=== PATIENT | male | born 1975 | race American Indian/Alaskan Native ===

== ENCOUNTER 2020-02-25 00:57 | Emergency (ER) | payer SELFPAY ==
[2020-02-25] MEDS ORDERED: ASPIRIN 325 MG TAB PO ONE (01:04)
[2020-02-25 02:08] LABS: Basophils # (Auto) 0.2 K/mm3 (0.0-0.1); Basophils % (Auto) 1.2 % (0.0-1.8); Eosinophils # (Auto) 0.5 K/mm3 (0.0-0.4); Eosinophils % (Auto) 3.9 % (0.0-4.3); Hematocrit 34.2 % (35.5-45.6); Hemoglobin 11.5 gm/dl (11.8-15.2); Lymphocytes # (Auto) 2.7 K/mm3 (1.2-5.4); Lymphocytes % (Auto) 20.5 % (13.4-35.0); Mean Corpuscular HGB Conc 34 % (32-34); Mean Corpuscular Volume 86 fl (84-94); Monocytes # (Auto) 1.4 K/mm3 (0.0-0.8); Monocytes % (Auto) 10.5 % (0.0-7.3); Platelet Count 273 K/mm3 (140-440); Red Blood Count 4.01 M/mm3 (3.65-5.03); Red Cell Distribution Width 15.5 % (13.2-15.2)
--- NOTE | 2020-02-25 02:21 | XRay Report ---
CHEST 1 VIEW 02/25/2020 2:05 AM INDICATION / CLINICAL INFORMATION: Chest Pain. COMPARISON: None available. FINDINGS: SUPPORT DEVICES: None. HEART / MEDIASTINUM: No significant abnormality. LUNGS / PLEURA: No significant pulmonary or pleural abnormality. No pneumothorax. ADDITIONAL FINDINGS: No significant additional findings. IMPRESSION: 1. No acute findings. Signer Name: Raúl Be MD Signed: 02/25/2020 2:16 AM Workstation Name: [id number]
[2020-02-25 02:23] LABS: BUN/Creatinine Ratio 15; Blood Urea Nitrogen 21 mg/dL (9-20); Calcium 9.6 mg/dL (8.4-10.2); Hemolysis Index 5
[2020-02-25 07:30] VITALS: BP 124/67
--- NOTE | 2020-02-25 09:43 | Emergency Department Report ---
ED Chest Pain HPI - General Chief Complaint: Chest Pain Stated Complaint: CHEST PAINS Time Seen by Provider: 02/25/20 09:03 Source: patient Mode of arrival: Ambulatory Limitations: No Limitations - History of Present Illness Initial Comments: 44-year-old male, history of hypertension, presents to ED with complaint of chest pain. Patient reports onset of chest pain yesterday evening. Patient states once he arrived in the ED his chest pain actually resolved. Patient has been sitting in the waiting room for 8 hours prior to me seeing him. He states that his chest pain is still at a 0. Patient states pain was located in the substernal area, mostly radiating into the left chest, but somewhat into the right chest. Patient denies any nausea, vomiting, diaphoresis, shortness of breath. He reports only some mild ankle edema, denies calf pain. [employer] Engineer: Dr Lynda FREEMAN Complaint: chest pain -: Last night Onset: during rest Pain Location: substernal Pain Radiation: other (Left and right chest) Severity: moderate Quality: sharp Consistency: now resolved Improves With: nothing Worsens With: nothing re: denies: nausea, vomting, diaphoresis, dyspnea Other Symptoms: denies: cough, fever - Related Data Home Medications Medication Instructions Recorded Confirmed Last Taken Losartan [Cozaar] 50 mg PO QDAY 03/07/18 03/07/18 03/07/18 06:00 50 mg Metoprolol [Lopressor TAB] 25 mg PO DAILY 03/07/18 03/07/18 03/07/18 06:00 Spironolactone [Aldactone] 25 mg PO QDAY 03/07/18 03/07/18 03/06/18 25 mg Allergies Allergy/AdvReac Type Severity Reaction Status Date / Time sulfamethoxazole Allergy Itching Verified 03/07/18 09:01 [From Bactrim] trimethoprim [From Bactrim] Allergy Itching Verified 03/07/18 09:01 Heart Score - HEART Score History: Slightly suspicious EKG: Non-specific Age: 45-65 Risk factors: > 3 risk factors or hx of atherosclerotic disease Troponin: < normal limit HEART Score: 4 ED Review of Systems ROS: Stated complaint: CHEST PAINS Other details as noted in HPI Comment: All other systems reviewed and negative Respiratory: denies: shortness of breath Cardiovascular: chest pain Gastrointestinal: denies: nausea, vomiting ED Past Medical Hx - Past Medical History Previous Medical History?: Yes Hx Hypertension: Yes Hx Congestive Heart Failure: Yes Additional medical history: Morbid Obesity - Surgical History Past Surgical History?: Yes Additional Surgical History: HERNIA,splenectomy - Social History Smoking Status: Never Smoker Substance Use Type: None - Medications Home Medications: Home Medications Medication Instructions Recorded Confirmed Last Taken Type Losartan [Cozaar] 50 mg PO QDAY 03/07/18 03/07/18 03/07/18 06:00 History 50 mg Metoprolol [Lopressor TAB] 25 mg PO DAILY 03/07/18 03/07/18 03/07/18 06:00 History Spironolactone [Aldactone] 25 mg PO QDAY 03/07/18 03/07/18 03/06/18 History 25 mg ED Physical Exam - General Limitations: No Limitations General appearance: alert, in no apparent distress, obese - Head Head exam: Present: atraumatic, normocephalic - Eye Eye exam: Present: normal appearance - ENT ENT exam: Present: mucous membranes moist - Neck Neck exam: Present: normal inspection - Respiratory Respiratory exam: Present: normal lung sounds bilaterally. Absent: respiratory distress - Cardiovascular Cardiovascular Exam: Present: regular rate, normal rhythm - GI/Abdominal GI/Abdominal exam: Present: soft. Absent: distended, tenderness - Extremities Exam Extremities exam: Present: pedal edema. Absent: calf tenderness - Neurological Exam Neurological exam: Present: alert, oriented X3 - Psychiatric Psychiatric exam: Present: normal affect, normal mood - Skin Skin exam: Present: warm, dry, intact, normal color ED Course Vital Signs 02/25/20 02/25/20 01:13 07:29 Temperature 98.1 F 98 F Pulse Rate 78 71 Respiratory 18 18 Rate Blood Pressure 117/65 Blood Pressure 124/67 [Right] O2 Sat by Pulse 94 98 Oximetry - Consultations Consultation #1: 02/25/20 09:57 Discussed patient with beatrice Vizcarra for [facility]. Per office notes, patient had normal cath 2 years ago and cardiomyopathy resolving. Since EKG unchanged and troponin negative x3, patient does not require admission at this time. Office will call patient with follow-up appointment. ED Medical Decision Making - Lab Data Result diagrams: 02/25/20 01:19 02/25/20 01:19 - EKG Data -: EKG Interpreted by Me EKG shows normal: sinus rhythm, ST-T waves Rate: normal - EKG Data When compared to previous EKG there are: no significant change (compared to 02/2018) Interpretation: other (LBBB) - Radiology Data Radiology results: report reviewed, image reviewed - Medical Decision Making 44-year-old male with history of cardiomyopathy presents to ED with chest pain, currently resolved. EKG is unchanged from previous EKGs. Troponin is negative x3. I spoke with patient's cardiology group, who agrees that patient does not require admission at this time. Patient has been advised to follow-up on an outpatient basis. He will be contacted with an appointment. Return precautions given. - Differential Diagnosis ACS, pulmonary edema, atypical chest pain Critical care attestation.: If time is entered above; I have spent that time in minutes in the direct care of this critically ill patient, excluding procedure time. ED Disposition Clinical Impression: Acute chest pain Disposition: DC-01 TO HOME OR SELFCARE Is pt being admited?: No Condition: Stable Instructions: Chest Pain (ED) Referrals: PRIMARY CARE, [Primary Care Provider] - 3-5 Days Time of Disposition: 09:59
[2020-02-25] MEDS ORDERED: ASPIRIN 325 MG TAB ONE (09:53)
== END 2020-02-25 10:05 | disposition home or self-care (01) ==
LOC: ED 00:57
DX: R07.89 Other chest pain (principal); I11.0 Hypertensive heart disease with heart failure; I50.9 Heart failure, unspecified; E66.01 Morbid (severe) obesity due to excess calories; Z98.890 Other specified postprocedural states; Z79.899 Other long term (current) drug therapy; Z88.2 Allergy status to sulfonamides
CPT/HCPCS: 36415; 71045; 80048; 84484; 85025; 93005